=== PATIENT | female | born 1980 | race Caucasian/White ===

== ENCOUNTER → 2017-09-26 10:51 | Outpatient (CLI) | payer BC, SELFPAY ==
--- NOTE | 2017-09-26 11:03 | RAD_ITS ---
STUDY: X-RAY - LUMBAR SPINE REASON FOR EXAM: Female, 36 years old. Chronic pain. History of fall with fractures. TECHNIQUE: 3 view(s) of the lumbar spine were obtained. COMPARISON: None FINDINGS: Normal lumbar lordosis. There is no substantial scoliosis. There is a normal alignment of the vertebrae. Normal vertebral bodies and endplates. There is transitional lumbosacral segments. Normal disc space heights. There is no demonstrated fracture. The soft tissue structures are unremarkable. RAD/Lumbar Spine 2 or 3 Views IMPRESSION: No fracture seen. Transitional vertebral segment. Electronically Signed: Rodrigo Wong MD at 19:55 EDT , Service support ,
[2017-09-26 12:21] LABS: Amphetamine Urine VISTA NEGATIVE (<1000 ng/mL); Barbiturate Urine VISTA NEGATIVE (< 200 ng/mL); Benzodiazepine Urine VISTA NEGATIVE (< 200 ng/mL); Cocaine Urine VISTA NEGATIVE (< 300 ng/mL); Ecstacy Urine VISTA NEGATIVE (< 500 ng/mL); Methadone Urine VISTA NEGATIVE (< 300 ng/mL); PCP Urine VISTA NEGATIVE (< 25 ng/mL); THC Urine VISTA POSITIVE (< 50 ng/mL); Vista UDS pH Range 5
== END ==
LOC: LAB 10:55
PROVIDERS: Visit Provider Anesthesiology Pain Medicine
DX: F11.20 Opioid dependence, uncomplicated (principal)
CPT/HCPCS: 72100; 80307

== ENCOUNTER → 2017-10-28 09:08 | Outpatient (CLI) | payer BC, SELFPAY | LOC: RAD 09:12 | PROVIDERS: Visit Provider Anesthesiology Pain Medicine | DX: M54.2 Cervicalgia (principal) | CPT/HCPCS: 72040 ==